=== PATIENT | female | born 1975 | race Caucasian/White ===

== ENCOUNTER 2016-07-21 12:20 | Outpatient (CLI) | payer OTHER ==
[2014-02-05 01:02] VITALS: BP 142/72
--- NOTE | 2016-07-22 05:56 | Diagnostic Imaging Report ---
TOD HARD[facility]~ [facility] [id number] [id number] ~ ~ ~ ~ Report Submission Date: Jul 21, 2016 2:02:10 PM CDT Patient ~ Study Name: GINO SHEPHERD ~ Date: Jul 21, 2016 12:36:04 PM CDT ~ Modality Type: CR Gender: F ~ Description: CHEST : 75 ~ Institution: [facility] Physician: TOD HARDEN ~ ~ ~ ~ Chest - two views Clinical history: ~Cough and wheezing. ~Trouble breathing. Findings: ~Examination of the chest in PA and lateral views with no prior film for comparison demonstrates discoid changes in the left base. ~Right lung is clear. ~Cardiovascular and mediastinal silhouettes are within normal limits for the patient's age and size. Impression: 1. 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 2. ~Otherwise negative chest. ~ Electronically signed on Jul 21, 2016 2:02:10 PM CDT by: Derick PADILLA
== END 2016-07-21 12:22 ==
LOC: RAD 12:20
PROVIDERS: ATTEND Physician Assistant
DX: R05 Cough (principal)
CPT/HCPCS: 71020